=== PATIENT | male | born 1985 | race Caucasian/White ===

== ENCOUNTER 2017-09-19 19:46 | Emergency (ER) | payer BC, OTHER ==
--- NOTE | 2017-09-19 20:09 | Emergency Department Record ---
History of Present Illness - General Chief Complaint: Neck Injury/Pain Stated Complaint: STIFF AND PAIN IN NECK Time Seen by Provider: 09/19/17 20:04 Source: Patient Mode of Arrival: Ambulatory Limitations: No limitations - History of Present Illness Initial Comments: 32 yo male presents to ED for evaluation of neck pain and stiffness following injury attempting to lower a "ballast light" from a ceiling. Patient reports that he was seen earlier today at urgent care, but reports that radiographs were not taken. Patient was prescribed Motrin and Flexeril for his pain symptoms, but he has not taken anything for his symptoms as of yet. Patient reports intermittent "sharp" pain to the LUE with neck movement at times, denies UE weakness or headache symptoms. MD Complaint: Neck injury, Neck pain Onset/Timin -: Hour(s) Place: Work Radiation: Upper back Severity: Constant Severity scale (1-10): 8 Quality: Sharp Consistency: Constant Improves With: Remaining still Worsens With: Movement of neck Context: Lifting Associated Symptoms: None Treatments Prior to Arrival: Heat therapy - Related Data Home Medications Medication Instructions Recorded Confirmed Last Taken Cyclobenzaprine HCl [Flexeril] 10 mg PO TID 09/19/17 09/19/17 Unknown Ibuprofen [Ibuprofen] 800 mg PO TID PRN 09/19/17 09/19/17 Unknown Allergies Allergy/AdvReac Type Severity Reaction Status Date / Time No Known Drug Allergies Allergy Verified 09/19/17 19:53 Travel Screening - Travel/Exposure Within Last 30 Days Have you traveled within the last 30 days?: No - Travel/Exposure Within Last Year Have you traveled outside the [place] in the last year?: No - Additonal Travel Details Have you been exposed to anyone with a communicable illness?: No - Travel Symptoms Symptom Screening: None Review of Systems Constitutional: Denies: Chills, Fever, Malaise, Night sweats Eyes: Denies: Eye discharge, Eye pain ENT: Denies: Congestion, Ear pain, Epistaxis Respiratory: Denies: Cough, Dyspnea Cardiovascular: Denies: Chest pain, Dyspnea on exertion Endocrine: Denies: Fatigue, Heat or cold intolerance Gastrointestinal: Denies: Abdominal pain, Nausea, Vomiting Genitourinary: Denies: Incontinence, Retention Musculoskeletal: Reports: Neck pain. Denies: Arthralgia, Back pain, Gout, Joint swelling Skin: Denies: Bruising, Change in color Neurological: Denies: Abnormal gait, Confusion, Headache, Seizure Psychiatric: Denies: Anxiety Hematological/Lymphatic: Denies: Anemia, Blood Clots Past Medical History - SOCIAL HISTORY Smoking Status: Heavy tobacco smoker (>10/day) Alcohol Use: Rare Drug Use: None - RESPIRATORY Hx Respiratory Disorders: No - CARDIOVASCULAR Hx Cardio Disorders: No - NEURO Hx Neuro Disorders: No - GI Hx GI Disorders: Yes Hx Ulcer: Yes (age 20) - Hx Genitourinary Disorders: No - ENDOCRINE Hx Endocrine Disorders: No - MUSCULOSKELETAL Hx Musculoskeletal Disorders: No - PSYCH Hx Psych Problems: No - HEMATOLOGY/ONCOLOGY Hx Hematology/Oncology Disorders: No Family Medical History Any Significant Family History?: No Physical Exam - General General Appearance: Alert, Oriented x3, Cooperative, Mild distress Limitations: No limitations - Head Head exam: Atraumatic, Normocephalic, Normal inspection Head exam detail: negative: Abrasion, Contusion, Redman's sign, General tenderness, Hematoma, Laceration - Eye Eye exam: Normal appearance. negative: Conjunctival injection, Periorbital swelling, Periorbital tenderness, Scleral icterus - ENT Ear exam: negative: Auricular hematoma, Auricular trauma Nasal Exam: negative: Active bleeding, Discharge, Dried blood, Foreign body - Neck Neck exam: Tenderness (TTP to the low cervical spine region, no paracervical tenderness on examination.). negative: Meningismus - Respiratory Respiratory exam: Normal lung sounds bilaterally. negative: Rales, Respiratory distress, Rhonchi, Stridor - Cardiovascular Cardiovascular Exam: Regular rate, Normal rhythm, Normal heart sounds - GI/Abdominal GI/Abdominal exam: Soft. negative: Rebound, Rigid, Tenderness - Rectal Rectal exam: Deferred - exam: Deferred - Extremities Extremities exam: Normal inspection. negative: Pedal edema, Tenderness - Back Back exam: Denies: CVA tenderness (R), CVA tenderness (L), Paraspinal tenderness - Neurological Neurological exam: Alert, Normal gait, Oriented X3, Other (Data Communications Engineer strength is 5/5 and symmetric on examination). negative: Motor sensory deficit - Psychiatric Psychiatric exam: Normal affect, Normal mood - Skin Skin exam: Normal color. negative: Abrasion Type of lesion: negative: abrasion Course Vital Signs 09/19/17 19:56 Temperature 97.7 F Pulse Rate [ 68 Pulse Ox Probe] Respiratory 16 Rate Blood Pressure 113/78 [Left Arm] Pulse Ox 99 - Reevaluation(s) Reevaluation #1: 09/19/17 20:38 Cervical Spine: No acute process Patient was updated on all results, has no evidence for spinal cord compression injury on examination, and appears stable for discharge with instructions to continue his previously prescribed medications as directed and to follow-up with his PCP in 3-5 days as directed. Disposition Disposition: Discharge Clinical Impression: Cervical strain, acute Qualifiers: Encounter type: initial encounter Qualified Code(s): S16.1XXA - Strain of muscle, fascia and tendon at neck level, initial encounter Disposition: Home, Self-Care Condition: (2) Stable Instructions: Cervical Sprain (ED) Additional Instructions: Return to ED if your symptoms worsen or if you have any concerns. Continue Flexeril/Motrin as prescribed. Follow-up with your family doctor in 3-5 days as directed. Forms: Patient Portal Access Time of Disposition: 20:39 Quality - Quality Measures Quality Measures: N/A - Blood Pressure Screening Does Patient Have Any of the Following: No Blood Pressure Classification: Normal BP Reading Systolic Measurement: 105 Diastolic Measurement: 68 Screening for High Blood Pressure: < Normal BP, F/U Not Required > [G8783]
--- NOTE | 2017-09-20 09:04 | RADIOLOGY REPORT ---
EXAM: CERVICAL SPINE, SIX VIEWS HISTORY: LIFTING INJURY, NECK PAIN. TECHNIQUE: Six views of the cervical spine were obtained. Comparison: None. Encounter: Initial. FINDINGS: Slight reversal of normal cervical lordosis. No acute fracture or subluxation. The disk stature is preserved. The neural foramina are patent. IMPRESSION: SLIGHT REVERSAL OF NORMAL CERVICAL LORDOSIS, OTHERWISE NO ACUTE PROCESS OF THE CERVICAL SPINE IDENTIFIED. JOB NUMBER: [id number] MTDD
== END 2017-09-19 20:55 | disposition home or self-care (01) ==
LOC: ER 19:46
DX: S16.1XXA Strain of muscle, fascia and tendon at neck level, initial encounter (principal); X50.0XXA Overexertion from strenuous movement or load, initial encounter; Y99.0 Civilian activity done for income or pay
CPT/HCPCS: 72050; 99283

== ENCOUNTER 2018-11-10 23:59 | Emergency (ER) | payer OTHER ==
[2018-11-11] MEDS ORDERED: 0.9 % SODIUM CHLORIDE 1,000 ML BAG IV ONE ×2 (00:24→02:06)
[2018-11-11] MEDS: ONDANSETRON HCL IV 4 MG/2 ML VIAL IVP ONE ×2 (00:31→02:13)
[2018-11-11 00:36] LABS: HEMATOCRIT 49.1 % (42.0-52.0); MEAN CELL VOLUME 87.7 fl (81-97); MEAN CORPUSCULAR HEMOGLOBIN 30.4 pg (27-33); MEAN CORPUSCULAR HGB CONC 34.6 g/dl (32-36); MEAN PLATELET VOLUME 10.1 fl (7.4-10.4); PLATELET COUNT 185 K/uL (130-400); RED CELL DISTRIBUTION WIDTH 12.8 % (11.5-14.5); WHITE BLOOD COUNT W/O DIFF 11.5 K/uL (4.2-12.2)
[2018-11-11 00:47] LABS: BLOOD UREA NITROGEN 21 mg/dL (6-20); CREATININE 0.9 mg/dL (0.7-1.2); EST GLOMERULAR FILTRATION RATE > 60 mL/min
[2018-11-11 00:50] LABS: GLUCOSE,RANDOM 98 mg/dL (74-109)
[2018-11-11 00:51] LABS: CRYPTOSPORIDIUM PARVUM ANTIGEN NOT DETECTED (NOT DETECT); GIARDIA LAMBLIA ANTIGEN NOT DETECTED (NOT DETECT); ROTOVIRUS NOT DETECTED (NOT DETECT)
[2018-11-11 00:52] LABS: ALT/SGPT 23 U/L (<41); AST/SGOT 18 U/L (10.0-50.0)
[2018-11-11 00:53] LABS: ALBUMIN 4.9 g/dL (4.0-5.0); ALKALINE PHOSPHATASE 73 U/L (55-149); LIPASE 38 U/L (13-60)
[2018-11-11 00:55] LABS: BILIRUBIN,DIRECT < 0.2 mg/dL (0-0.3)
--- NOTE | 2018-11-11 01:21 | Emergency Department Record ---
History of Present Illness - General Chief complaint: Nausea, Vomiting, Diarrhea Stated complaint: NAUSEA AND VOMITTING Time Seen by Provider: 11/11/18 00:23 Source: Patient Mode of Arrival: Ambulatory Limitations: No limitations - History of Present Illness Initial comments: pt has had multiple bouts of vomiting and diarrhea for 5 hrs. he thought he might have food poisoning. he had chicken for lunch that was 5 days old. he had beef for dinner that had been in the freezer for 2 years. his is also ill MD complaint: Diarrhea, Nausea, Vomiting Onset/Timin -: Hour(s) Description of Vomiting: Bilious Description of Diarrhea: Mucous, Water Radiation: None Quality: Cramping Improves with: None Worsens with: Eating Context: Sick contacts Associated Symptoms: Nausea/vomiting - Related Data Home Medications Medication Instructions Recorded Confirmed Last Taken Omeprazole [Prilosec] 20 mg PO DAILY 11/11/18 11/11/18 Unknown Previous Rx's Medication Instructions Recorded Ondansetron [Zofran Odt] 4 mg PO Q8H #10 tab.rapdis 11/11/18 Sulfamethoxazole/Trimethoprim 1 each PO BID #6 tablet 11/11/18 [Bactrim Ds Tablet] Allergies Allergy/AdvReac Type Severity Reaction Status Date / Time No Known Drug Allergies Allergy Verified 09/19/17 19:53 Travel Screening - Travel/Exposure Within Last 30 Days Have you traveled within the last 30 days?: No Review of Systems Reviewed: No additional complaints except as noted below Constitutional: Reports: As per HPI. Denies: Chills, Fever, Malaise, Night sweats, Weakness, Weight change Eyes: Reports: As per HPI. Denies: Eye discharge, Eye pain, Photophobia, Vision change ENT: Reports: As per HPI. Denies: Congestion, Dental pain, Ear pain, Epistaxis , Hearing loss, Throat pain Respiratory: Reports: As per HPI. Denies: Cough, Dyspnea, Hemoptysis, Stridor, Wheezes Cardiovascular: Reports: As per HPI. Denies: Arrhythmia, Chest pain, Dyspnea on exertion, Edema, Murmurs, Orthopnea, Palpitations, Paroxysmal nocturnal dyspnea, Rheumatic Fever, Syncope Endocrine: Reports: As per HPI. Denies: Fatigue, Heat or cold intolerance, Polydipsia, Polyuria Gastrointestinal: Reports: As per HPI. Denies: Abdominal pain, Constipation, Diarrhea, Hematemesis, Hematochezia, Melena, Nausea, Vomiting Genitourinary: Reports: As per HPI. Denies: Dysuria, Frequency, Hematuria, Incontinence, Retention, Testicular pain, Testicular mass, Urgency Musculoskeletal: Reports: As per HPI. Denies: Arthralgia, Back pain, Gout, Joint swelling, Myalgia, Neck pain Skin: Reports: As per HPI. Denies: Bruising, Change in color, Change in hair/ nails, Lesions, Pruritus, Rash Neurological: Reports: As per HPI. Denies: Abnormal gait, Confusion, Headache, Numbness, Paresthesias, Seizure, Tingling, Tremors, Vertigo, Weakness Psychiatric: Reports: As per HPI. Denies: Anxiety, Auditory hallucinations, Depression, Homicidal thoughts, Suicidal thoughts, Visual hallucinations Hematological/Lymphatic: Reports: As per HPI. Denies: Anemia, Blood Clots, Easy bleeding, Easy bruising, Swollen glands Past Medical History - SOCIAL HISTORY Smoking Status: Heavy tobacco smoker (>10/day) - RESPIRATORY Hx Respiratory Disorders: No - CARDIOVASCULAR Hx Cardio Disorders: No - NEURO Hx Neuro Disorders: No - GI Hx GI Disorders: Yes Hx Reflux: Yes Hx Ulcer: Yes (age 20) - Hx Genitourinary Disorders: No - ENDOCRINE Hx Endocrine Disorders: No - MUSCULOSKELETAL Hx Musculoskeletal Disorders: No - PSYCH Hx Psych Problems: No - HEMATOLOGY/ONCOLOGY Hx Hematology/Oncology Disorders: No Family Medical History Any Significant Family History?: No Physical Exam - General General Appearance: Alert, Oriented x3, Cooperative, Mild distress - Head Head exam: Normal inspection - Eye Eye exam: Normal appearance, PERRL, EOMI Pupils: Normal accommodation - ENT ENT exam: Normal exam, Mucous membranes moist, Normal external ear exam, Normal orophraynx Ear exam: Normal external inspection. negative: External canal tenderness Nasal Exam: Normal inspection. negative: Discharge, Sinus tenderness Mouth exam: Normal external inspection, Tongue normal Teeth exam: Normal inspection. negative: Dental caries Throat exam: Normal inspection. negative: Tonsillar erythema, Tonsillar exudate - Neck Neck exam: Normal inspection, Full ROM. negative: Tenderness - Respiratory Respiratory exam: Normal lung sounds bilaterally. negative: Respiratory distress - Cardiovascular Cardiovascular Exam: Regular rate, Normal rhythm, Normal heart sounds - GI/Abdominal GI/Abdominal exam: Soft, Normal bowel sounds. negative: Tenderness - Rectal Rectal exam: Deferred - exam: Deferred - Extremities Extremities exam: Normal inspection, Full ROM, Normal capillary refill. negative: Tenderness - Back Back exam: Reports: Normal inspection, Full ROM. Denies: Muscle spasm, Rash noted, Tenderness - Neurological Neurological exam: Alert, CN II-XII intact, Normal gait, Oriented X3 - Psychiatric Psychiatric exam: Normal affect, Normal mood - Skin Skin exam: Dry, Intact, Normal color, Warm Course Vital Signs 11/11/18 00:03 Temperature 98.5 F Pulse Rate 86 Respiratory 20 Rate Blood Pressure 118/75 Pulse Ox 98 - Reevaluation(s) Reevaluation #1: 11/11/18 01:53 pt feels better Medical Decision Making - Lab Data Result diagrams: 11/11/18 00:30 11/11/18 00:30 Lab Results 11/11/18 11/11/18 11/11/18 Range/Units 00:30 00:30 00:46 WBC 11.5 (4.2-12.2) K/uL RBC 5.60 (4.40-5.70) M/uL Hgb 17.0 (14.0-18.0) gm/dl Hct 49.1 (42.0-52.0) % MCV 87.7 (81-97) fl MCH 30.4 (27-33) pg MCHC 34.6 (32-36) g/dl RDW 12.8 (11.5-14.5) % Plt Count 185 (130-400) K/uL MPV 10.1 (7.4-10.4) fl Neutrophils % 83.0 H (47-80) % Band Neutrophils % 0.0 (0-5) % Eosinophils % Not Reportable Basophils % Not Reportable Lymphocytes 7.0 L (16-45) % Monocytes 9.0 (0-9) % Basophils 0.0 (0-6) % Eosinophil Count 1.0 (0-6) % Sodium 141 (136-145) mmol/L Potassium 4.4 (3.4-4.5) mmol/L Chloride 102 (98-107) mmol/L Carbon Dioxide 24.0 (22-29) mmol/L Anion Gap 15.0 (7-16) BUN 21 H (6-20) mg/dL Creatinine 0.9 (0.7-1.2) mg/dL Estimated GFR > 60 mL/min Random Glucose 98 (74-109) mg/dL Calcium 9.6 (8.6-10.0) mg/dL Total Bilirubin 0.50 (0.2-1.0) mg/dL Direct Bilirubin < 0.2 (0-0.3) mg/dL AST 18 (10.0-50.0) U/L ALT 23 (<41) U/L Alkaline Phosphatase 73 (55-149) U/L Total Protein 8.0 (6.6-8.7) g/dL Albumin 4.9 (4.0-5.0) g/dL Lipase 38 (13-60) U/L Stool Occult Blood (NEGATIVE) Stool for White Cells Few wbc's observed H (NO WBC'S) Rotavirus Antigen (NOT DETECT) Cryptosporid parvum Ag (NOT DETECT) Giardia lamblia Ag (NOT DETECT) 11/11/18 11/11/18 Range/Units 00:46 00:47 WBC (4.2-12.2) K/uL RBC (4.40-5.70) M/uL Hgb (14.0-18.0) gm/dl Hct (42.0-52.0) % MCV (81-97) fl MCH (27-33) pg MCHC (32-36) g/dl RDW (11.5-14.5) % Plt Count (130-400) K/uL MPV (7.4-10.4) fl Neutrophils % (47-80) % Band Neutrophils % (0-5) % Eosinophils % Basophils % Lymphocytes (16-45) % Monocytes (0-9) % Basophils (0-6) % Eosinophil Count (0-6) % Sodium (136-145) mmol/L Potassium (3.4-4.5) mmol/L Chloride (98-107) mmol/L Carbon Dioxide (22-29) mmol/L Anion Gap (7-16) BUN (6-20) mg/dL Creatinine (0.7-1.2) mg/dL Estimated GFR mL/min Random Glucose (74-109) mg/dL Calcium (8.6-10.0) mg/dL Total Bilirubin (0.2-1.0) mg/dL Direct Bilirubin (0-0.3) mg/dL AST (10.0-50.0) U/L ALT (<41) U/L Alkaline Phosphatase (55-149) U/L Total Protein (6.6-8.7) g/dL Albumin (4.0-5.0) g/dL Lipase (13-60) U/L Stool Occult Blood Positive H (NEGATIVE) Stool for White Cells (NO WBC'S) Rotavirus Antigen Not detected (NOT DETECT) Cryptosporid parvum Ag Not detected (NOT DETECT) Giardia lamblia Ag Not detected (NOT DETECT) Disposition Disposition: Discharge Clinical Impression: Diarrhea Qualifiers: Diarrhea type: infectious Qualified Code(s): A09 - Infectious gastroenteritis and colitis, unspecified Vomiting Qualifiers: Vomiting type: unspecified Vomiting Intractability: non-intractable Nausea presence: with nausea Qualified Code(s): R11.2 - Nausea with vomiting, unspecified Disposition: Home, Self-Care Condition: (1) Good Instructions: Acute Nausea and Vomiting (ED), Acute Diarrhea (ED) Additional Instructions: follow up with family doctor. return sooner if worse. push fluids. Prescriptions: Ondansetron [Zofran Odt] 4 mg PO Q8H #10 tab.rapdis Sulfamethoxazole/Trimethoprim [Bactrim Ds Tablet] 1 each PO BID #6 tablet Forms: Patient Portal Access Quality - Quality Measures Quality Measures: N/A - Blood Pressure Screening Does Patient Have Any of the Following: No Blood Pressure Classification: Normal BP Reading Systolic Measurement: 118 Diastolic Measurement: 75 Screening for High Blood Pressure: < Normal BP, F/U Not Required > [G8783]
[2018-11-11 01:47] LABS: MOLECULAR C DIFF TOXIN SCREEN NOT DETECTED (NOT DETECT)
[2018-11-11] MEDS ORDERED: TMP/SMZ 160MG/800MG TAB PO ONE (02:02)
[2018-11-11] MEDS ORDERED: HYOSCYAMINE SULFATE ODT 0.125 MG TAB.SUBL SL ONE (02:03)
[2018-11-11] MEDS ORDERED: ONDANSETRON 4 MG ODT TABLET SL ONE (02:06)
[2018-11-11] MEDS ORDERED: PROMETHAZINE HCL 12.5 MG in 0.9 % SODIUM CHLORIDE 100ML 100 ML IVPB ONE (03:42)
== END 2018-11-11 04:02 | disposition home or self-care (01) ==
LOC: ER 23:59
DX: A09 Infectious gastroenteritis and colitis, unspecified (principal); R11.2 Nausea with vomiting, unspecified; F17.210 Nicotine dependence, cigarettes, uncomplicated
CPT/HCPCS: 99284 ×2; 96374; 96375; 83690; 87329; 80076; 80048; 89055; 87425; 87427; 82272; 87493; 85027; J1980; J2405; J3490; J2550; J7030